=== PATIENT | female | born 1990 | race Hispanic/Latino ===

== ENCOUNTER → 2016-12-24 | Outpatient (CLI) | payer SELFPAY ==
--- NOTE | 2016-12-24 16:44 | DI ---
OBSTETRICAL ULTRASOUND, 12/24/2016 2:33 PM: Clinical History: Antepartum screening. Previous Exam: None at this facility for this . ADJUSTED LMP FROM EARLY OBUS: 07/31/2016. There is a single live IUP currently in unstable presentation. Amnionic fluid content is normal. Feta l activity is observed as follows: cardiac, extremity, and respiratory. The placenta is posterior cor pus and Grade 1. heart rate is 155 beats/minute and regular. There is a 3 vessel cord. The RVOT , LVOT and 4 chamber heart view are normal. The aortic arch and descending aorta are normal. Views of the spine, face, and kidneys are unremarkable. BPD, HC, AC, and FL measurements are 43 mm, 175 mm, 154 mm, and 33 mm, respectively. These measurements correspond to EGA values of 19 weeks 1 day, 20 weeks 1 day, 20 weeks 5 days and 20 weeks 3 days, respectively. Composite EGA is 20 weeks 1 day. T he US EDC is 05/12/2017. EDC by adjusted LMP is 05/07/2017. Cord Doppler ultrasound was performed by the technologist and this shows diastolic flow with normal systolic/diastolic ratios for this stage of pr egnancy. Readin. Single live fetus with unstable presentation and normal amniotic fluid content. Placenta is poste rior corpus and grade 1. 2. The composite EGA is 20 weeks 1 day with an ultrasound EDC of 05/12/2017. Based on the adjusted LMP of 07/31/2016, the EDC would be 05/07/2017. 3. The antepartum screening survey is normal.
== END ==
LOC: US 14:23
PROVIDERS: ATTEND Family Medicine
DX: Z36 Encounter for antenatal screening of mother (principal); Z3A.20 20 weeks gestation of pregnancy
CPT/HCPCS: 76805